=== PATIENT | female | born 1995 | race Caucasian/White ===

== ENCOUNTER 2021-04-28 10:54 | Emergency (ER) | payer OTHER ==
[~2021-04-28 10:54] MED LIST: CYCLOBENZAPRINE10 MG PO; MEDROL 4MG DOSEP4 MG PO; MOTRIN600 MG PO; VOLTAREN **OUT75 MG PO
== END 2021-04-28 14:20 | disposition home or self-care (01) ==
LOC: FER 10:54
DX: S93.402A Sprain of unspecified ligament of left ankle, initial encounter (principal); W19.XXXA Unspecified fall, initial encounter
CPT/HCPCS: 99283